=== PATIENT | male | born 1995 | race Two or more races ===

== ENCOUNTER 2017-04-26 20:27 | Emergency (ER) | payer BC, OTHER ==
[~2017-04-26] VITALS: Ht 172.7 cm; Wt 74.8 kg
[~2017-04-26 20:27] MED LIST: ALBU8.5H8 INH; MOME13HF2 INH
[2017-04-26 21:19] LABS: BASOPHILS % (AUTO) 0.5 % (0.0-2.0); EOSINOPHILS # (AUTO) 0.2 K/uL (0.0-0.7); EOSINOPHILS % (AUTO) 2.8 % (0.0-7.0); HEMATOCRIT 43.8 % (40-50); HEMOGLOBIN 14.5 G/DL (14.0-18.0); LYMPHOCYTES # (AUTO) 2.7 K/UL (0.8-4.8); LYMPHOCYTES % (AUTO) 42.1 % (20.5-51.5); MEAN CORPUSCULAR HEMOGLOBIN 26.4 UUG (27.0-31.0); MEAN CORPUSCULAR HGB CONC 33 g/dL (32.0-37.0); MEAN CORPUSCULAR VOLUME 79.9 FL (82.0-92.0); MONOCYTES # (AUTO) 0.5 K/UL (0.1-1.30); NEUTROPHILS % (AUTO) 46.6 % (38.5-71.5); PLATELET COUNT (AUTO) 236 K/UL (150-450); RED BLOOD CELL COUNT(AUTO) 5.49 MIL/UL (4.7-6.1); WHITE BLOOD COUNT (AUTO) 6.4 K/UL (4.0-11.2)
[2017-04-26 21:25] LABS: POTASSIUM 4.4 mmol/L (3.5-5.1)
--- NOTE | 2017-04-26 22:43 | NUR ---
Pt stable for discharge per Dr. Johnson. Pt conts to c/o pain but declines medication. Pt given ACI. Pt verbalized understanding of dc instructions. Pt ambulated out of ER with steady gait.
[2017-04-26 22:48] VITALS: BP 125/76
== END 2017-04-26 22:40 | disposition home or self-care (01) ==
LOC: EDBD 20:27 → ER 20:27
DX: R07.89 Other chest pain (principal); J45.909 Unspecified asthma, uncomplicated
CPT/HCPCS: 36415; 80048; 85025; 85379; 93005; 99285; A4663

== ENCOUNTER 2018-10-13 11:41 | Emergency (ER) | payer BC, OTHER ==
[~2018-10-13] VITALS: Ht 170.2 cm; Wt 77.1 kg
[2018-10-13] MEDS ORDERED: NAPROXEN 500 MG TABLET PO ONE (12:15)
[2018-10-13] MEDS ORDERED: NAPROXEN 500 MG TABLET ONE (12:22)
--- NOTE | 2018-10-13 12:44 | NUR ---
Patient discharged to home in stable conditon. Written and verbal after care instructions given. Patient verbalizes understanding of instructions.pt walks in steady gait. pt pain down to tolerable level of 4/10
== END 2018-10-13 12:45 | disposition home or self-care (01) ==
LOC: ER 11:41
DX: S49.91XA Unspecified injury of right shoulder and upper arm, initial encounter (principal); J45.909 Unspecified asthma, uncomplicated; Z79.899 Other long term (current) drug therapy; W03.XXXA Other fall on same level due to collision with another person, initial encounter; Y93.89 Activity, other specified; Y92.89 Other specified places as the place of occurrence of the external cause; Y99.8 Other external cause status
CPT/HCPCS: 73030; A4663

== ENCOUNTER 2019-01-05 10:54 | Emergency (ER) | payer BC, OTHER ==
[~2019-01-05] VITALS: Ht 170.2 cm; Wt 34.0 kg
[2019-01-05 12:10] VITALS: BP 136/69
== END 2019-01-05 12:11 | disposition home or self-care (01) ==
LOC: ER 10:54
DX: S93.401A Sprain of unspecified ligament of right ankle, initial encounter (principal); J45.909 Unspecified asthma, uncomplicated; Z79.899 Other long term (current) drug therapy; X50.1XXA Overexertion from prolonged static or awkward postures, initial encounter; Y93.66 Activity, soccer; Y92.89 Other specified places as the place of occurrence of the external cause; Y99.8 Other external cause status
CPT/HCPCS: 73610; A4663

== ENCOUNTER 2021-04-16 15:06 | Emergency (ER) | payer BC ==
[~2021-04-16] VITALS: Ht 170.2 cm; Wt 88.5 kg
[2021-04-16] MEDS ORDERED: ACETAMINOPHEN 325 MG TABLET PO ONE (15:45)
[2021-04-16] MEDS ORDERED: ACETAMINOPHEN ES 500 MG TABLET ONE (15:48)
--- NOTE | 2021-04-16 16:06 | NUR ---
Gave pt d/c instructions, pt verbalized understanding.
== END 2021-04-16 16:05 | disposition home or self-care (01) ==
LOC: ER 15:20
DX: R59.0 Localized enlarged lymph nodes (principal); J45.909 Unspecified asthma, uncomplicated
CPT/HCPCS: A4663; A9150